=== PATIENT | male | born 1975 | race Caucasian/White ===

== ENCOUNTER → 2024-02-14 11:53 | Outpatient (REF) | payer SELFPAY | LOC: RAD 11:53 | PROVIDERS: ATTENDING PHYSICIAN Family Medicine | DX: E78.2 Mixed hyperlipidemia (principal); E66.9 Obesity, unspecified | CPT/HCPCS: 75571 ==

== ENCOUNTER 2024-10-02 06:19 | Day surgery (SDC) | payer OTHER, SELFPAY | END 2024-10-02 11:25 | disposition home or self-care (01) | LOC: GI 06:19 | PROVIDERS: ATTENDING PHYSICIAN Internal Medicine Gastroenterology | DX: Z12.11 Encounter for screening for malignant neoplasm of colon (principal); K57.30 Diverticulosis of large intestine without perforation or abscess without bleeding; D12.2 Benign neoplasm of ascending colon; K63.5 Polyp of colon; K62.1 Rectal polyp; Z86.0101 Personal history of adenomatous and serrated colon polyps | CPT/HCPCS: 45385; 45380; 88305 ==